=== PATIENT | female | born 2005 | race Caucasian/White ===

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

== ENCOUNTER 2025-07-07 14:11 | Emergency (ER) | payer OTHER, SELFPAY ==
[2025-07-07 14:13] VITALS: BP 159/113
[2025-07-07 14:45] LABS: Hematocrit 42.3 % (37.0-47.0); Hemoglobin 13.8 g/dL (12.0-16.0); Mean Corp Hgb Conc. 32.6 g/dL (33.0-37.0); Mean Corpuscular Volume 87.4 fL (81.0-99.0); Nucleated Red Blood Cells % 0 %; Platelet Count 221 10^3/uL (130-400); Red Cell Dist. Width 12.1 % (11.5-14.5)
[2025-07-07 14:46] LABS: HCG, Serum Qualitative Screen Negative
[2025-07-07 14:50] LABS: ALT (SGPT) 16 U/L (0-35); AST (SGOT) 21 U/L (14-36); Albumin 4.5 g/dl (3.5-5.0); Alkaline Phosphatase 33 U/L (38-126); Blood Urea Nitrogen 19 mg/dl (7-17); Calcium 9.2 mg/dl (8.4-10.2); Carbon Dioxide 28 mmol/L (22-30); Chloride 103 mmol/L (98-107); Glucose 89 mg/dl (70-99); Potassium 4.2 mmol/L (3.5-5.1); Sodium 137 mmol/L (135-145); Total Protein 7.2 g/dl (6.3-8.2); eGFR > 60.00
--- NOTE | 2025-07-07 15:50 | ED.GENMED ---
History of Present Illness
General
Chief Complaint: Abdominal Symptoms
Source: patient
Exam Limitations: none
Time Seen by Provider: 07/07/25 15:25
Nursing documentation reviewed up to this point in time: agreed with
History of Present Illness
History of Present Illness:
Patient to the emergency department with complaint of sharp pelvic pain. Symptoms started over the past week but have become more severe today. She reports that she missed her period last month. She has taken multiple OTC tests, all
were negative. She denies any vaginal discharge. She denies any pain with urination. She denies fever/chills. Brought self to the emergency room today for evaluation. 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
did not feel that she could wait.
Past History
Past History
ED Past Medical History: Psychiatric (Anxiety)
Social History
Tobacco: Non-smoker
Alcohol: None
Drug: None
Review of Systems
Review of Systems
Allergies reviewed?: Yes
All Other Systems: ROS reviewed and negative except as documented in HPI and ROS
Constitutional: Reports no symptoms
EENT: Reports no symptoms
Respiratory: Reports no symptoms
Cardiac: Reports no symptoms
ABD/GI: Reports abdominal pain (Lower abdominal/pelvic pain)
: Reports other (Pelvic pain)
Musculoskeletal: Reports no symptoms
Skin: Reports no symptoms
Neurological: Reports no symptoms
Psychiatric: Reports no symptoms
Phy Exam
General Physical Exam
General Presentation: mild distress
General age: appears stated age
General Skin: warm and dry
General Habitus: normal
General Mental: alert
Gastrointestinal Exam
Gastrointestinal Exam: normal bowel sounds, soft, no organomegaly and non distended
Palpation: left upper quadrant: No tenderness, left lower quadrant: Moderate tenderness, right upper quadrant: No tenderness and right lower quadrant: Moderate tenderness
Genitourinary Exam Female
Exam Female: no adnexal tenderness, no bleeding, no CMT, no lesions, no mass and no vaginal discharge
Vaginal Exam: normal
Vaginal Bleeding: none
Visual exam of cervix: erythemia
Musculoskeletal Exam
Musculoskeletal Exam: full ROM and neuro vasc intact
Skin Exam
Skin Exam: normal color, warm/dry and no rash
Psychiatric Exam
Psychiatric Exam: normal mood/affect
Course
Orders/Labs/Results
Orders:
Orders
07/07/25 14:16
Test Result ONCE
07/07/25 14:20
Complete Blood Count/With Diff Urgent
Comprehensive Metabolic Panel Urgent
HCG, Serum Qualitative Screen Urgent
Comment: Notify provider if positive test present
07/07/25 15:49
US Abdomen - Appendix Only Urgent
Comment:
Reason For Exam: RLQ pain
US Pelvis W Transvag Combined Urgent
Reason For Exam: pelvic pain
07/07/25 15:59
Urinalysis Reflex To Culture Urgent
Date Specimen was Collected: 07/07/25
Time Specimen was Collected: 15:55
Urine Microscopic Reflex Cult Urgent
Chlamydia/GC by PCR Urgent
JASPREET Source: Urine
Specimen Description:
Source:: URINE
Date Specimen was Collected: 07/07/25
Time Specimen was Collected: 15:54
Genital Culture Urgent
JASPREET Source: Cervix
Specimen Description:
Date Specimen was Collected: 07/07/25
Time Specimen was Collected: 15:54
Trichomonas - Wet Prep Urgent
JASPREET Source: Vagina
Specimen Description:
Date Specimen was Collected: 07/07/25
Time Specimen was Collected: 15:54
Abnormal Lab Results
07/07/25 07/07/25
14:20 15:59
MCHC 32.6 L g/dL
(33.0-37.0)
BUN 19 H mg/dl
(7-17)
Alkaline Phosphatase 33 L U/L
(38-126)
Ur Occult Blood Reflex 1+ A
(Negative)
07/07/25 14:20
07/07/25 14:20
Vital Signs
Initial and Last Documented VS:
Initial Vital Signs
Temp Pulse Resp BP Pulse Ox
98.6 F 73 18 159/113 100
07/07/25 14:13 07/07/25 14:13 07/07/25 14:13 07/07/25 14:13 07/07/25 14:13
Last Documented Vital Signs
Temp Pulse Resp BP Pulse Ox
98.5 F 68 20 119/82 99
07/07/25 16:04 07/07/25 16:04 07/07/25 16:04 07/07/25 16:04 07/07/25 16:04
*Radiology
Radiology exam reviewed: radiology read reviewed
*Pulse Oximetry
SaO2: 100
Oxygen Mode of Delivery: Room air
Patient hypoxic: no
*Critical Care Note
Total Time (30-74mins, 75-104mins- exclusive of procedures): Not Applicable
Update Note
Update Note:
Patient to emergency department for evaluation of pelvic pain. Describes pain as intermittent and sharp. Vital signs are stable she remains afebrile. Pelvic exam completed bedside, no concerning findings on exam. Trichomonas, chlamydia,
gonorrhea all negative. Genital culture results are pending. Labs reviewed, WNL, WBC 6.7. Ultrasound completed of pelvis and appendix. The appendix was not visualized however no masses or fluid collections were noted in the right lower
quadrant. Pelvic ultrasound unremarkable. No findings to explain her pain. She is resting comfortably and in no distress. Low suspicion for appendicitis. Will hold off on CT at this time. Patient and mother were given instructions on signs and
symptoms to return to the emergency department and they are agreeable with this plan. She will follow-up with her family doctor this week and her bag filler machine operator at her scheduled appointment on Monday.
ED Attending Note
-
Portions of this chart may have been created with voice recognition software.� Occasional wrong word or��sound alike� substitutions may have occurred due to the inherent limitations of voice recognition software.
Discharge Plan
Departure
Patient Disposition: Home (Routine Discharge)
Date of Disposition: 07/07/25
Time of Disposition: 19:22
Patient with high blood pressure during this ER visit?: No
Condition: Good
Covid-19: Not Applicable
Discharge Problem:
Pelvic pain
Instructions: Pelvic pain - ED (DC)
Prescriptions:
No Action
polyethylene glycol 3350 17 GRAMS powder in packet
17 grams PO DAILY
trazodone 50 mg Tablet
50 - 100 mg PO HSPRN PRN (Reason: sleep)
spironolactone 25 mg Tablet
50 mg PO DAILY
propranolol 10 mg Tablet
10 mg PO DAILYPRN PRN (Reason: anxiety)
norgestimate-ethinyl estradiol 0.18/0.215/0.25 mg-25 mcg Tablet
1 tab PO DAILY
Referrals:
Dyana Spear PA-C [Family Provider, Family Practice]
Stand Alone Forms: Return to Work
Activity Restrictions/Additional Instructions:
Follow-up with your bag filler machine operator as scheduled. Return to the emergency immediately for any changes in/worsening of your symptoms.
Interventions
Interventions:
*Risk Screen - Suicide Last Done: 07/07/25 14:13
*General Assessment Last Done: 07/07/25 16:04
*Neglect/Abuse Screening Last Done: 07/07/25 16:04
*ED- Fall Risk Assessment Last Done: 07/07/25 16:04
*ED COVID-19 Vaccine History Last Done: 07/07/25 16:04
*ED Influenza Vaccine History Last Done: 07/07/25 16:04
WP-Zktynp-Irsvguraci Assessment Last Done: 07/07/25 16:04
Discharge Date and Time
Print Language: CHINESE
[2025-07-07 16:03] VITALS: BMI 25.8
[2025-07-07 16:04] VITALS: BP 119/82
[2025-07-07 17:09] LABS: Urine Character Clear (Clear)
[2025-07-07 17:20] LABS: Urine Red Blood Cell 0-2 /HPF (0-2)
== END 2025-07-07 19:52 | disposition home or self-care (01) ==
LOC: EMR 14:11
PROVIDERS: Nurse Practitioner; EMERGENCY PHYSICIAN Emergency Medicine; FAMILY PHYSICIAN Physician Assistant
DX: R10.20 Pelvic and perineal pain unspecified side (principal); F41.9 Anxiety disorder, unspecified
CPT/HCPCS: 99284; 76705; 76830; 76856; 80053; 81003; 81015; 84703; 85025; 87070; 87210; 87491; 87591